=== PATIENT | male | born 2000 | race Caucasian/White ===

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

== ENCOUNTER 2020-01-08 09:06 | Outpatient (RCR) | payer OTHER, SELFPAY ==
[2019-12-31 00:39] VITALS: BP 120/75; PULSE 68; RESP 18; TEMP 37.3
[2020-01-08 09:07] VITALS: BP 124/80; PULSE 76; RESP 18; TEMP 37; BMI 27.3
--- NOTE | 2020-01-08 09:23 | PCM.WC.PN ---
(1) Open wound of left knee Status: Chronic Current Visit: Yes Code(s): S81.002A - Unspecified open wound, left knee, initial encounter Comment: Penetrating with fat layer exposed. Type of Wound Date of Service: 01/08/20 Chief Complaint: Non healing left knee wound History of Wound: Mr. Diaz is a 19-year-old who presents to the wound center due to nonhealing left knee wound. Sustained a wound while at work. Was working on wet concrete surface. Has been applying aloe without any significant improvement. No known past medical history. Feels well otherwise. Denies tobacco abuse. Progress of Wound: Healed. No new concerns. - Physical Exam Vital Signs Temp Pulse Resp BP 98.6 F 76 18 124/80 H 01/08/20 09:07 01/08/20 09:07 01/08/20 09:07 01/08/20 09:07 General: Alert, Oriented x3, Cooperative, No apparent distress HEENT: Atraumatic, Normocephalic Oral: Moist Mucosa Neck: Supple Lungs: Normal air movement Abdomen: Soft, Non Tender Extremities: No cyanosis Wound Measurements and Assessment WC - Nurse 1 - General Ulcer Measurement Start: 01/08/20 09:07 Freq: Status: Active Protocol: Activity Type Activity Date Activity User E-Sign Co-Sign Detail Recorded Client Recorded Date Recorded By Document 01/08/20 09:07 RB [id number] 01/08/20 09:09 RB 01/08/20 09:07 Wound Center Nurse 1 [Ulcer Assessment] 1. LEFT KNEE cluster -Combined with other wound No -Current Size (cm) - Length 0 -Current Size (cm) - Width 0 -Current Size (cm) - Depth 0 -Total Square Cm 0 -Photo Taken Yes -Epithelialization Large 67-100% WC - Nurse 2 - General Ulcer CM Notes Start: 01/08/20 09:07 Freq: Status: Active Protocol: Activity Type Activity Date Activity User E-Sign Co-Sign Detail Recorded Client Recorded Date Recorded By Document 01/08/20 09:19 MW [id number] 01/08/20 09:20 MW 01/08/20 09:19 Wound Center Nurse 2 [Procedure/Treatment] -Time 09:19 -Correct Patient Yes -Correct Side, Site, Position Yes -Correct Procedure Yes -Procedure Performed No -Post Debridement Size (cm) - Length 0 -Post Debridement Size (cm) - Width 0 -Post Debridement Size (cm) - Depth 0 -Total Square Cm 0 -Wound/Ulcer Outcome Healed- Epithelialized [See Physician Procedure note for Specifics] Pain Scale: 0-10 Numeric [Pain] -Is Patient Pain Free? Yes Musculoskeletal: No Muscle Wasting Neurological: Cranial nerves II-XII grossly intact Psych/Mental Status: Normal Affect Debridement Note Post-Debridement Measurements/Treatment WC - Nurse 2 - General Ulcer CM Notes Start: 01/08/20 09:07 Freq: Status: Active Protocol: Activity Type Activity Date Activity User E-Sign Co-Sign Detail Recorded Client Recorded Date Recorded By Document 01/08/20 09:19 MW [id number] 01/08/20 09:20 MW 01/08/20 09:19 Wound Center Nurse 2 1. LEFT KNEE cluster -Time 09:19 -Correct Patient Yes -Correct Side, Site, Position Yes -Correct Procedure Yes -Procedure Performed No -Post Debridement Size (cm) - Length 0 -Post Debridement Size (cm) - Width 0 -Post Debridement Size (cm) - Depth 0 -Total Square Cm 0 -Wound/Ulcer Outcome Healed- Epithelialized Pain Scale: 0-10 Numeric Is Patient Pain Free? Yes No debridement was completed today Assessment/Plan Active Problems (Last Reviewed 07/08/19 @ 16:37 by Estephania Nino) Open wound of left knee (Chronic) Penetrating with fat layer exposed. Assessment: left knee wound - healed. Plan: Healed, no new concerns today. Adaptic and gauze over top for 2 weeks. Keep area protected. Discharged from the wound clinic. Call with any concerns. This note was generated with [employer] dictation software. It may contain incorrect words, spelling, and punctuation that were not noted in checking the note before signing. Office Visits / Consults: 36019 OV L3 Est
== END 2020-01-30 23:59 ==
LOC: WC 09:06
PROVIDERS: PCP Pediatrics; Visit Provider Internal Medicine
DX: S81.002A Unspecified open wound, left knee, initial encounter (principal); X58.XXXA Exposure to other specified factors, initial encounter; Y93.89 Activity, other specified; Y92.89 Other specified places as the place of occurrence of the external cause; Y99.0 Civilian activity done for income or pay
CPT/HCPCS: 99213; G0463

== ENCOUNTER 2020-04-23 09:23 | Day surgery (SDC) | payer OTHER, SELFPAY ==
[2020-04-19 09:48] VITALS: BMI 29.3
[2020-04-23] VITALS (7 sets, daily range): BP systolic 125–146; BP diastolic 72–92; PULSE 60–81; RESP 14–99; TEMP 36.6–37; O2SAT 98–100
[2020-04-23] MEDS: Lactated Ringers 1,000 ML 100 ML IV (10:13)
--- NOTE | 2020-04-23 10:44 | DCINST_ITS ---
Weight Bearing Status: No weight bearing Call your doctor if you observe: Shortness of breath, Chest pain Additional Instructions: Do not bear weight on operative extremity . strict ice and elevation to the operative extremity 7 days postop. Do not remove splint. keep splint on clean and dry. Keep extremity cool apply ice behind the knee or anterior ankle. Avoid sweating to minimize itch. Do not stick anything inside of splint may take [id number] Benadryl for itch if necessary. Only take pain medication as prescribed. Narcotics can be addictive so only take if needed supplement with 1000 mg of Tylenol every 6 hours as needed for pain and OTC NSAID of preference to minimize narcotic usage. call with any questions or concerns and follow-up as directed. Allergies/Adverse Reactions: Allergies Sulfa (Sulfonamide Antibiotics) Allergy (Severe, Verified 04/19/20 15:25) Swelling Medications to take at Discharge Naproxen Sodium [Aleve] 220 mg PO PRN PRN 04/19/20 Oxycodone [Oxyir] 5 mg PO Q4H PRN PRN #40 tablet 04/23/20 The following prescriptions were given: Oxycodone [Oxyir] 5 mg PO Q4H PRN PRN #40 tablet PRN Reason: Pain Score 6-10 Transmission Status: Sent to [facility] Primary Care Physician: Yousuf Oliveira MD [Primary Care Provider] - Test Results: Test results from this visit will be discussed in further detail at your follow- up appointment, if applicable. Please Follow Up With: Larry Cunningham DO When: 2 weeks.
--- NOTE | 2020-04-23 10:44 | HP.PCM_ITS ---
History and Physical Date of Admission: 04/23/20 Intake Vital Signs 04/19/20 Height 6 ft 3 in 04/19/20 Weight: 235 lb 04/19/20 BMI 29.3 Intake Visit Reasons: LEFT ANKLE Accompanied by: Mother Is patient in pain?: Yes Pain scale (1-10): 5 Allergies Sulfa (Sulfonamide Antibiotics) Allergy (Severe, Verified 04/19/20 09:49) Swelling Medications NK 04/19/20 [History Confirmed 04/19/20] [facility] Medical History Back pain (Acute) Hay fever (Acute) SOB (shortness of breath) (Acute) Severe headache (Acute) ADHD (Chronic) Asthma (Chronic) Surgical History H/O left wrist surgery (Acute) History of tonsillectomy and adenoidectomy (Acute) History of tonsillectomy and adenoidectomy (Inactive) Family History (Updated 04/19/20 @ 09:53 by Erica Jensen) Mother Hypertension MVP (mitral valve prolapse) Father Asthma Hyperlipidemia ELAINE (obstructive sleep apnea) Brother Asthma Other Migraines Narcolepsy Social History (Updated 04/19/20 @ 12:59 by HEIDI Richards) household members: family Smoking Status: Never smoker alcohol intake: never substance use type: does not use what type of physical activity do you participate in: weight training frequency: 3-4 times per week do you feel safe at home: Yes HPI LEFT ANKLE: Details: Parts of this documentation were recorded by a scribe, this documentation accurately reflects the service provided and the decisions made by me, HEIDI Bernstein 04/19/20 3610. JOSS HARDIN is a 19 year old M here today to establish as a new patient. Patient tripped over a [place] citizen shorthair, patient felt immediate pain afterwards. Patient reports he did hear a snap and a pop. DOI: 04/17/2020. [facility], Sachin ordered the x-rays and was referred to our office. Denies previous foot and ankle surgeries, injections and injuries. Pain is rated 5/10 from the pain scale. Pain increases with ambulation. Has been taking Ibuprofen, which has not been providing any relief. Has been elevating his leg and applying ice which has been controlling his swelling. Denies numbness, tingling or other associated symptoms. ROS Const Reports system reviewed and no additional complaints, except as docu, Denies chills, Denies fatigue, Denies fever(s) Card Reports system reviewed and no additional complaints, except as docu, Denies chest pain, Denies shortness of breath Resp Reports system reviewed and no additional complaints, except as docu, Denies chest congestion, Denies cough, Denies shortness of breath GI Reports system reviewed and no additional complaints, except as docu, Denies abdominal pain, Denies constipation, Denies incontinent of stools, Denies loose stools Reports system reviewed and no additional complaints, except as docu, Denies urinary incontinence Musc Reports system reviewed and no additional complaints, except as docu, Reports abnormal walking, Reports joint pain, Reports joint swelling, Denies numbness, Denies stiffness, Denies tingling Skin/Breast Reports system reviewed and no additional complaints, except as docu, Denies dry skin, Denies redness, Denies lesions, Denies new lesions, Denies non-healing lesions, Denies itching, Denies rash, Denies skin ulcer, Denies sores, Denies wounds Neuro Yes system reviewed and no additional complaints, except as docu, Yes abnormal walking, No numbness, Yes radiating pain (calf), No restless legs, No tingling Endo Denies fatigue Ortho Exam Left Foot/Ankle Skin: Yes Ecchymosis and Soft Tissue Swelling; no Erythema Exam: Yes Ecchymosis, Soft tissue swelling, TTP FX site, TTP Lateral Malleolus, TTP ATFL, TTP Deltoid Ligament and TTP CFL; no Erythema Compartments: soft ROM: Yes pain with ROM Tests: Squeeze Test: 2 Pulses: Dorsalis Pedis: 2 ANKLE: Inspection of the left ankle shows generalized swelling both medially and laterally. There is evident ecchymosis also noted both medial and laterally. Patient does have decreased range of motion due to swelling and discomfort. He does have pain with range of motion. He has evident reproducible tenderness on palpation of the distal fibula at the fracture site as well as tenderness in the tibiofibular ligament as well as the deltoid and ATFL. Patient does have pain with squeeze test likely indicating syndesmotic/tibiofibular involvement. He does have normal sensation.extremity normal pulses. He does have intact motor function of the ankle/foot/toes. Assessment & Plan Problems 1. Closed fracture of distal end of left fibula, unspecified fracture morphology, initial encounter S82.407B 2. Moderate left ankle sprain, initial encounter S93.080L Plan Patient presents the office today following a injury on Sunday where he tripped over the dog and had an inversion injury. Patient states that as the ankle twisted he did feel a pop and had immediate pain. Patient has been in a boot and on crutches for the past 2 days. [facility] showing evidence of a spiral/oblique fracture in the distal fibula. His physical exam however today shows evidence of deltoid ligament involvement as well as tibiofibular and probable syndesmotic involvement. We did review his radiographs today and discussed anatomy and physiology of the ankle including ligamentous instability. At this time with his physical exam findings we did discuss with the surgeon that surgery is an option due to the deltoid involvement creating an unstable ankle joint. After discussing different options with patient and his mother they would like to proceed with surgical intervention at this time. We did discuss the planned procedure would be an open reduction internal fixation with a fibular plate. We will do an intraoperative stress test/stress view to evaluate the syndesmosis and pending that outcome will possibly use tight rope fixation for syndesmotic injury. Risks and benefits of the procedure were discussed with patient as seen on surgical consent form. We also did discuss COVID-19 risks being an in-hospital procedure. Patient will be notified by our office for the date of surgery. We discussed this likely will be Sunday due to the severity of swelling that he has today. He needs to work hard on keeping this elevated, icing, and can try some light compression with an Don wrap during icing to help remove some of the s welling. If swelling does not go down and they have concerns they can return to the office to have this checked. He will then be notified by the hospital/surgery department for preanesthesia/surgery testing. He will also receive Covid testing proximally 72 hours prior to procedure. He would not know the time of his surgery until the day before. They can notify our office in the meantime with any other concerns or complaints. He should continue to be on crutches nonweightbearing and use the boot at all time. This note was generated with [employer] dictation software. It may contain incorrect words, spelling, and punctuation that were not noted in checking the note before signing. Plan Detail Goals Decrease spasm Improve ROM Barriers Baseball Coding Level of Care Code Off vis,est,level 3 Diagnoses Closed fracture of distal end of left fibula, unspecified fracture morphology, initial encounter S82.832A ??Encounter type: initial encounter ??Fibula location: distal ??Fracture morphology: unspecified fracture morphology Moderate left ankle sprain, initial encounter S93.402A ??Encounter type: initial encounter I have re-examined the patient. There are no clinical changes since date of exam
--- NOTE | 2020-04-23 10:45 | RAD_ITS ---
STUDY: X-RAY - LEFT ANKLE REASON FOR EXAM: Male, 19 years old. ORIF fibula TECHNIQUE: 3 view(s) of the ankle. COMPARISON: 04/19/2020 FINDINGS: Fluoroscopy of the left ankle was utilized and operating room and 2 images suspended for interpretation.. RAD/Ankle min 3 Views IMPRESSION: Fluoroscopy during surgery. Electronically Signed: Ashkan Peralta MD at 12:05 EDT Tel , Service support ,
[2020-04-23] MEDS: Cefazolin 2 GM in 0.9% Normal Saline 100 ML IV (10:52)
--- NOTE | 2020-04-23 12:09 | PCM.OPRPT ---
Report of Operation Date of Procedure: 04/23/20 Description of Surgical Findings:: Preoperative diagnosis: Left distal fibula Hicks B displaced fracture, with corresponding deltoid rupture Postoperative diagnosis: Same Procedure: ORIF right distal fibula, evaluation of syndesmosis under anesthesia Anesthesia: General with popliteal block EBL: 10 Complications: None Implants: Arthrex distal fibular locking plate Condition: stable to PACU Indication for procedure: 19-year-old male That is post injury to left ankle with corresponding medial ankle ecchymosis and significant medial pain consistent with deltoid rupture sustained a Hicks B distal fibula fracture with some displacement on lateral view. We discussed the nature of his injury being a bimalleolar equivalent type of fracture and recommended ORIF did discuss thoroughly risk benefits and alternatives of surgery versus nonsurgical intervention including risk of bleeding infection nerve artery tissue damage need for further surgery hardware prominence and continued pain and expected post operative course. Procedure: Patient was met the preoperative holding area once again the operative extremity was then identified by both patient and physician was marked. Patient was brought back to the operating room on a wheeled cart and transferred to the operative table supine position. Anesthesia was started well-padded tourniquet was placed on the operative upper thigh. The patient was prepped and draped in the usual sterile fashion and a timeout was called to ensure the proper patient procedure and extremity were being contemplated. An Esmarch was used to exsanguinate the extremity and the tourniquet was inflated to 300 mmHg. A 15 blade scalpel was used to make a lateral incision to the distal fibula. This was carried down through the skin and subcutaneous tissue electrocautery was used, avoiding superficial peroneal nerve. Full-thickness flaps were elevated to the bone fracture site was evaluated and was cleared of hematoma and debris with a curette and irrigation was used. A [id number] reduction clamp was used to reduce the fracture [while a interfragmentary compression screw was placed] followed by a lateral locking plate was slid underneath this was checked under fluoroscopy for positioning of plate and fracture reduction the plate was secured to the shaft with a cortical screw followed by sequential cortical screws in the proximal aspect of the plate. This was followed by 3 locking screws in the distal end of the plate hook test was performed to ensure no syndesmotic instability. The medial syndesmotic joint space was symmetric with the remainder of the ankle mortise in both AP and mortise views fluoroscopic under stress testing images were saved to the PACS system the wound was thoroughly irrigated and was closed with 0 Vicryl followed by 2-0 Vicryl subcutaneous tissue followed by savi followed by Xeroform 4 x 4 ABD web roll bulky Mcdermott dressing stirrup splint and posterior slab splint followed by an Don wrap. Patient tolerated the procedure well and was transferred the PACU in stable condition. All counts were correct.
[2020-04-23] MEDS: oxyCODONE 5 MG Tablet PO (12:55)
[2020-04-23] MEDS: Cephalexin 500 MG Capsule 1000 MG PO (14:16)
== END 2020-04-23 14:19 | disposition home or self-care (01) ==
LOC: SDC 09:23 → AC 09:24
PROVIDERS: PCP Pediatrics; Referring Provider Orthopaedic Surgery; Visit Provider Orthopaedic Surgery
PROC: (CPT 27792; principal; 2020-04-23 10:40)
DX: S82.832A Other fracture of upper and lower end of left fibula, initial encounter for closed fracture (principal); W18.49XA Other slipping, tripping and stumbling without falling, initial encounter; Y93.9 Activity, unspecified; Y92.9 Unspecified place or not applicable; S93.402A Sprain of unspecified ligament of left ankle, initial encounter; J45.909 Unspecified asthma, uncomplicated
CPT/HCPCS: 01480; 27792; 64445; 73610; 76000; 87635; C1713; C9803; J7120; J2405; U0003

== ENCOUNTER → 2020-06-04 13:16 | Outpatient (CLI) | payer OTHER, SELFPAY ==
[2020-05-10 14:07] VITALS: BMI 29.3
--- NOTE | 2020-06-04 13:27 | RAD_ITS ---
STUDY: X-RAY - LEFT ANKLE REASON FOR EXAM: Male, 19 years old. Follow up post op left ankle. receiving rehab for ankle. surgery took place the end of april this year. TECHNIQUE: 3 view(s) of the ankle. COMPARISON: Comparison is made with prior study dated 04/19/2020. FINDINGS: The patient is status post ORIF of the distal fibular fracture utilizing screw and sideplate fixation device. There is good alignment. There is healing of the fracture. Normal medial and lateral malleoli. Normal tibiotalar articulation and ankle mortise. Normal visualized talus and calcaneus. The visualized subtalar, talonavicular, calcaneocuboid and tarsal articulations are normal. The soft tissue structures are unremarkable. RAD/Ankle min 3 Views IMPRESSION: Status post ORIF of the distal fibular fracture utilizing screw and sideplate fixation device. There is healing of the fracture. Anatomical alignment. Electronically Signed: Mele Murillo, at 15:33 EST , Service support ,
== END ==
PROVIDERS: PCP Pediatrics; Referring Provider Orthopaedic Surgery; Visit Provider Orthopaedic Surgery
DX: S82.402A Unspecified fracture of shaft of left fibula, initial encounter for closed fracture (principal); Z47.89 Encounter for other orthopedic aftercare
CPT/HCPCS: 73610

== ENCOUNTER 2020-06-23 14:00 | Outpatient (RCR) | payer OTHER, SELFPAY ==
[2020-05-10 14:07] VITALS: BMI 29.3
--- NOTE | 2020-05-13 16:24 | HP.PTEVAL ---
Patient's Visit Information JOSS HARDIN is a 19 year old M referred to Physical Therapy by Dr. Larry Cunningham DO with a diagnosis of L LE fracture. Date of Evaluation: 05/13/20 Physical Therapist: Joao Sanchez, PT, ATC - Visit Plan Frequency: 2-3x /Week Duration: 4-6 Weeks Plan: L ankle PROM/MOBS, stretching and strengthening, balance and proprio, bike, and HEP - Subjective DOS: 04/23/20. Pt reports he tripped over a dog and fractured L LE just above the ankle. Pt reports he went and had xrays and later that day he went and had the surgery. Pt reports he is gradually getting better now. Pt reports the pain is decreasing, and now that he is able to TTWB, there is not any increased pain. 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 Pt notes he has sprained his L ankle before, but never had injury to this extent. Pt reports tingling in L LE when he first wakes up, be that goes away with ambulation. No difficulty with sleep secondary to pain. Pt notes he can negotiate stairs now, but has to go one step at a time. Pt reports he has no pain this date while sitting here in the clinic. - Pain L LE Pain Intensity (Out of 10): 0 Pain Intensity Range: 3 - Objective Neuro: B LE sensation is WNL to light touch. Girth at ankle: R= 62 cm, L = 63 cm. ROM: R ankle DF= 10, PF= 55, Inv= 35, ever= 20; L ankle DF= 0, PF= 35, ever= 0, inv=20. MMT: R ankle is 5/5 throughout. L ankle is grossly 2/5 and painful. Observation: Incision still vaguely healing. No signs of infection at this time. - Goals Goal 1:: Decrease L LE pain x 50% to aid with tolerance for ambulation Goal Time Frame: 4-6 Weeks Goal 2:: Increase L LE strength x 1 grade to aid with RTS without limitation Goal Time Frame: 4-6 Weeks Goal 3:: Increase L ankle DF ROM x 10 degrees to aid with restoring a normalized gait pattern Goal Time Frame: 4-6 Weeks Goal 4:: I with HEP Goal Time Frame: 4-6 Weeks - Rehabilitation Potential Physical Therapy Diagnosis: L LE pain, weakness, and limited ROM secondary to L LE fracture Rehabilitation Potential: Good - Anticipated Interventions Patient/Client Instruction: Educate patient on: Condition, Plan of Care For the Purpose of:: To improve self management Therapeutic Exercise to Include: Strength training, Endurance training, Balance training, Flexibilty training, Gait and locomotor training, Passive ROM, Active ROM For the Purpose of:: To decrease pain, To increase ROM, To improve muscle performance and motor function Cryotherapy (ice pack, ice massage): Yes For the Purpose of:: To decrease pain Thank you for the opportunity to evaluate your patient. For Medicare and Medicare HMO plans, please review the plan of care and approve it. It will need to be FAXED BACK to us at [phone] for Medicare purposes. For Medicare only, by signing this I certify the plan of care. Please let me know if there are questions or concerns regarding this plan of care. Physician Signature: Date:
--- NOTE | 2020-06-23 14:13 | HP.PTDCSUM_ITS ---
It has been my pleasure to treat JOSS HARDIN referred by Dr. Larry Cunningham DO, with the diagnosis of L LE fracture for a total of 12 visit(s). Discharge Date: 06/23/20 Please see the following information for a summary of their discharge status. Subjective: Has walked without boot without difficulty for a ful day. Went to mall without it. Mom wants her to wean off of it and be careful. No pain in long time.Sleep is fine. To doctor in mid July. Activities at home are pretty normal outside of workout, wants to do leg press, squats, RDL. Will play baseball at [employer] in the spring. Teammates are hitting. No t allowed to swing until sees doctor. Wants to be done with therapy and feels like he can do it himself. L LE Pain Intensity (Out of 10): 0 % Improvement: 80 Objective/Function: 7 DF L and 60 PF, full and symmetrical eversiona dn inve rsion. 5/5 strength B ankles. walks normal including on toes and heels. Steps normal and reciprocal without deviations. Jogs well short distances without pain. Feels confident with slow progression of exercises. Goal 1:: Decrease L LE pain x 50% to aid with tolerance for ambulation Goal Progress: Goal Met Goal 2:: Increase L LE strength x 1 grade to aid with RTS without limitation Goal Progress: Goal Met Goal 3:: Increase L ankle DF ROM x 10 degrees to aid with restoring a normalized gait pattern Goal Progress: Goal Met Goal 4:: I with HEP Goal Progress: Goal Met Plan: Pt to doctor in July. wishes to be discharged from therapy. Will do so at his request after above education. can be sent back after doctor visit if conserns. If there are questions or concerns regarding this patient's physical therapy, please feel free to call me at [phone]. Thank you for the referral of this patient. Sincerely, Morris Huizar, DPT, OCS, CSCS
== END 2020-06-23 19:00 | disposition home or self-care (01) ==
LOC: PT 14:00
PROVIDERS: PCP Pediatrics; Referring Provider Orthopaedic Surgery; Visit Provider Orthopaedic Surgery
DX: Z47.89 Encounter for other orthopedic aftercare (principal)
CPT/HCPCS: 97110; 97140; 97161; 97164

== ENCOUNTER → 2021-03-22 08:51 | Outpatient (CLI) | payer OTHER, SELFPAY ==
[2021-03-22 12:22] LABS: Absolute Lymphocyte Count 1.04 X10^3/uL (0.83-4.51); Absolute Neutrophil Count 8.3 X10^3/uL (2.0-7.7); Basophil# 0.05 X10^3/uL; Basophil% 0.5 % (0-1); Eosinophil# 0.08 X10^3/uL; Eosinophils% 0.8 % (0-5); Hematocrit 46.5 % (40-54); Hemoglobin 15.5 g/dL (13.0-16.5); Lymphocyte # 1.04 X10^3/ul (0.83-4.51); Mean Corp Hgb Conc 33.3 g/dL (32-36); Mean Corpuscular Hgb 28.9 pg (27.0-32.0); Mean Corpuscular Volume 86.6 fL (80-94); Monocyte% 8.6 % (0-10); NRBC Flagged by Analyzer 0 % (0-5); Neutrophil % 79.3 % (47-70); Platelet Count 330 K/mm3 (150-450); RBC Distribution Width CV 12.3 % (11.6-14.6); RBC Distribution Width SD 38.9 fl (35.1-43.9); Red Blood Count 5.37 M/mm3 (4.6-6.2); White Blood Count 10.5 K/mm3 (4.4-11.0)
[2021-03-22 12:46] LABS: Amphetamine Urine VISTA NEGATIVE (<1000 ng/mL); Barbiturate Urine VISTA NEGATIVE (< 200 ng/mL); Benzodiazepine Urine VISTA NEGATIVE (< 200 ng/mL); Cocaine Urine VISTA NEGATIVE (< 300 ng/mL); Ecstacy Urine VISTA NEGATIVE (< 500 ng/mL); Methadone Urine VISTA NEGATIVE (< 300 ng/mL); PCP Urine VISTA NEGATIVE (< 25 ng/mL); THC Urine VISTA NEGATIVE (< 50 ng/mL); Vista UDS pH Range 6
[2021-03-22 12:53] LABS: AST(SGOT) 19 U/L (15-37); Alanine Aminotransfer ALT/SGPT 37 U/L (16-61); Alkaline Phosphatase 93 U/L (45-117); Anion Gap 7 (5-15); BUN 19 mg/dL (7-18); BUN/Creat Ratio 17.3 RATIO (10-20); Calcium,Total 9.7 mg/dL (8.5-10.1); Chloride 105 mmol/L (98-107); EST Glomerular Filtration Rate 90 mL/min (>60); Est Glom Filt Rate - Afr Amer 109 mL/min (>60); Globulin 4.2 g/dL (2.2-4.2); Glucose 76 mg/dL (74-106); Protein, Total 8.2 g/dL (6.4-8.2); Sodium Level 136 mmol/L (136-145); T4 Free Direct 0.98 ng/dL (0.76-1.46); Thyroid Stim Hormone (TSH) 2.21 uIU/mL (0.358-3.74)
== END ==
PROVIDERS: PCP Internal Medicine; Referring Provider Internal Medicine; Visit Provider Internal Medicine
DX: F90.9 Attention-deficit hyperactivity disorder, unspecified type (principal)
CPT/HCPCS: 36415; 80053; 80307; 84439; 84443; 85025

== ENCOUNTER → 2021-03-24 13:11 | Outpatient (CLI) | payer OTHER, SELFPAY ==
--- NOTE | 2021-03-24 13:15 | EKG12_ITS ---
Test Reason : TACHY Blood Pressure : / mmHG Vent. Rate : 071 BPM Atrial Rate : 071 BPM P-R Int : 146 ms QRS Dur : 100 ms QT Int : 392 ms P-R-T Axes : 035 017 028 degrees QTc Int : 425 ms Normal sinus rhythm Normal ECG Confirmed by ELY LEWIS, KAREEM ([id number]), associate editor HAI DEVLIN ([id number]) on 03/25/2021 1:19:48 PM Referred By: Gricel Maguire Confirmed By:MARIANN GRAVES MD
== END ==
PROVIDERS: PCP Internal Medicine; Referring Provider Internal Medicine; Visit Provider Internal Medicine
DX: F90.9 Attention-deficit hyperactivity disorder, unspecified type (principal)
CPT/HCPCS: 93005

== ENCOUNTER 2021-09-06 08:24 | Outpatient (CLI) | payer OTHER, SELFPAY ==
[2021-09-06 13:04] LABS: Amphetamine Urine VISTA NEGATIVE (<1000 ng/mL); Barbiturate Urine VISTA NEGATIVE (< 200 ng/mL); Benzodiazepine Urine VISTA NEGATIVE (< 200 ng/mL); Cocaine Urine VISTA NEGATIVE (< 300 ng/mL); Ecstacy Urine VISTA NEGATIVE (< 500 ng/mL); Methadone Urine VISTA NEGATIVE (< 300 ng/mL); PCP Urine VISTA NEGATIVE (< 25 ng/mL); THC Urine VISTA NEGATIVE (< 50 ng/mL); Vista UDS pH Range 5
== END 2021-09-06 23:59 | disposition home or self-care (01) ==
LOC: BIMLAB 08:25
PROVIDERS: PCP Internal Medicine; Referring Provider Internal Medicine; Visit Provider Internal Medicine
DX: F90.0 Attention-deficit hyperactivity disorder, predominantly inattentive type (principal)
CPT/HCPCS: 80307

== ENCOUNTER → 2022-03-14 | Outpatient (CLI) | payer OTHER, SELFPAY ==
[2022-03-14 12:18] LABS: Absolute Lymphocyte Count 2.08 X10^3/uL (0.83-4.51); Basophil# 0.08 X10^3/uL; Basophil% 1.3 % (0-1); Eosinophil# 0.29 X10^3/uL; Eosinophils% 4.7 % (0-5); Hematocrit 46.1 % (40-54); Hemoglobin 15.1 g/dL (13.0-16.5); Lymphocyte # 2.08 X10^3/ul (0.83-4.51); Lymphocyte % 33.9 % (19-41); Mean Corp Hgb Conc 32.8 g/dL (32-36); Mean Corpuscular Hgb 28.5 pg (27.0-32.0); Mean Corpuscular Volume 87.1 fL (80-94); Mean Platelet Vol. 9.1 fl (6.2-12.0); Monocyte# 0.66 X10^3/uL; Monocyte% 10.7 % (0-10); NRBC Flagged by Analyzer 0 % (0-5); Neutrophil # 2.99 X10^3/uL (2.7-7.7); Neutrophil % 48.7 % (47-70); Platelet Count 335 K/mm3 (150-450); RBC Distribution Width CV 12.7 % (11.6-14.6); RBC Distribution Width SD 40.1 fl (35.1-43.9); Red Blood Count 5.29 M/mm3 (4.6-6.2); White Blood Count 6.1 K/mm3 (4.4-11.0)
[2022-03-14 12:20] LABS: Amphetamine Urine VISTA NEGATIVE (<1000 ng/mL); Barbiturate Urine VISTA NEGATIVE (< 200 ng/mL); Benzodiazepine Urine VISTA NEGATIVE (< 200 ng/mL); Cocaine Urine VISTA NEGATIVE (< 300 ng/mL); Ecstacy Urine VISTA NEGATIVE (< 500 ng/mL); Methadone Urine VISTA NEGATIVE (< 300 ng/mL); PCP Urine VISTA NEGATIVE (< 25 ng/mL); THC Urine VISTA NEGATIVE (< 50 ng/mL); Vista UDS pH Range 5
[2022-03-14 12:49] LABS: ALB/GLOB Ratio 1.1 RATIO (0.9-2.4); AST(SGOT) 27 U/L (15-37); Alanine Aminotransfer ALT/SGPT 39 U/L (16-61); Albumin, Serum 3.9 g/dL (3.2-5.0); Alkaline Phosphatase 89 U/L (45-117); Anion Gap 6 (5-15); BUN 18 mg/dL (7-18); BUN/Creat Ratio 19.6 RATIO (10-20); Calcium,Total 9.7 mg/dL (8.5-10.1); Chloride 107 mmol/L (98-107); Creatinine, Serum 0.92 mg/dL (0.70-1.30); EST Glomerular Filtration Rate 110 mL/min (>60); Est Glom Filt Rate - Afr Amer 133 mL/min (>60); Globulin 3.7 g/dL (2.2-4.2); Glucose 88 mg/dL (74-106); Potassium 4.5 mmol/L (3.5-5.1); Protein, Total 7.6 g/dL (6.4-8.2); Sodium Level 139 mmol/L (136-145)
== END | disposition home or self-care (01) ==
LOC: BIMLAB 08:31
PROVIDERS: PCP Internal Medicine; Referring Provider Internal Medicine; Visit Provider Internal Medicine
DX: F90.9 Attention-deficit hyperactivity disorder, unspecified type (principal); Z51.81 Encounter for therapeutic drug level monitoring
CPT/HCPCS: 36415; 80053; 80307; 85025

== ENCOUNTER → 2022-05-16 | Outpatient (CLI) | payer OTHER, SELFPAY ==
[2022-05-16 12:25] LABS: Amphetamine Urine VISTA NEGATIVE (<1000 ng/mL); Barbiturate Urine VISTA NEGATIVE (< 200 ng/mL); Benzodiazepine Urine VISTA NEGATIVE (< 200 ng/mL); Cocaine Urine VISTA NEGATIVE (< 300 ng/mL); Ecstacy Urine VISTA NEGATIVE (< 500 ng/mL); Methadone Urine VISTA NEGATIVE (< 300 ng/mL); PCP Urine VISTA NEGATIVE (< 25 ng/mL); THC Urine VISTA NEGATIVE (< 50 ng/mL); Vista UDS pH Range 7
== END | disposition home or self-care (01) ==
LOC: LABSPEC 09:30 → BIMLAB 15:33
PROVIDERS: PCP Internal Medicine; Referring Provider Physician Assistant; Visit Provider Physician Assistant
DX: F90.9 Attention-deficit hyperactivity disorder, unspecified type (principal)
CPT/HCPCS: 36415; 80307

== ENCOUNTER → 2023-01-01 | Outpatient (CLI) | payer OTHER, SELFPAY ==
[2023-01-01 12:24] LABS: Absolute Lymphocyte Count 1.54 X10^3/uL (0.83-4.51); Absolute Neutrophil Count 4.2 X10^3/uL (2.0-7.7); Basophil# 0.09 X10^3/uL; Basophil% 1.3 % (0-1); Hematocrit 46.5 % (40-54); Hemoglobin 15.6 g/dL (13.0-16.5); Lymphocyte # 1.54 X10^3/ul (0.83-4.51); Mean Corp Hgb Conc 33.5 g/dL (32-36); Mean Corpuscular Volume 86.4 fL (80-94); Mean Platelet Vol. 9.3 fl (6.2-12.0); Monocyte# 0.61 X10^3/uL; Monocyte% 9.1 % (0-10); NRBC Flagged by Analyzer 0 % (0-5); Neutrophil # 4.24 X10^3/uL (2.7-7.7); Neutrophil % 63.5 % (47-70); Platelet Count 314 K/mm3 (150-450); RBC Distribution Width CV 12.7 % (11.6-14.6); RBC Distribution Width SD 39.9 fl (35.1-43.9); Red Blood Count 5.38 M/mm3 (4.6-6.2); White Blood Count 6.7 K/mm3 (4.4-11.0)
[2023-01-01 12:42] LABS: AST(SGOT) 21 U/L (15-37); Alanine Aminotransfer ALT/SGPT 32 U/L (16-61); Alkaline Phosphatase 76 U/L (45-117); Anion Gap 6 (5-15); BUN 17 mg/dL (7-18); BUN/Creat Ratio 16.7 RATIO (10-20); Calcium,Total 10.3 mg/dL (8.5-10.1); Chloride 106 mmol/L (98-107); Cholesterol 182 mg/dL (200); Creatinine, Serum 1.02 mg/dL (0.70-1.30); EST Glomerular Filtration Rate 97 mL/min (>60); Est Glom Filt Rate - Afr Amer 117 mL/min (>60); Globulin 3.9 g/dL (2.2-4.2); Glucose 80 mg/dL (74-106); High Density Lipoprotein 37 mg/dL; Protein, Total 7.9 g/dL (6.4-8.2); Sodium Level 139 mmol/L (136-145); Triglycerides 190 mg/dL; Very Low Density Lipoprotein 38 mg/dL (5-40)
== END | disposition home or self-care (01) ==
LOC: BIMLAB 09:47
PROVIDERS: PCP Internal Medicine; Referring Provider Internal Medicine; Visit Provider Internal Medicine
DX: I10 Essential (primary) hypertension (principal)
CPT/HCPCS: 36415; 80053; 80061; 85025

== ENCOUNTER 2023-12-07 16:20 | Emergency (ER) | payer OTHER, SELFPAY ==
[2023-12-07 16:20] VITALS: BP 161/88; PULSE 82; RESP 14; TEMP 36.1; O2SAT 98
--- NOTE | 2023-12-07 16:25 | RAD_ITS ---
EXAM: XR LEFT TIBIA AND FIBULA, 2 VIEWS CLINICAL INDICATION: FALL TECHNIQUE: Frontal and lateral views of the left tibia and fibula. COMPARISON: No relevant prior studies available. FINDINGS: BONES/JOINTS: Cortical plate with multiple screws in place along the distal fibular shaft and lateral malleolus. No evidence of hardware failure. No acute fracture or subluxation. SOFT TISSUES: Lateral soft tissue swelling noted at the level of the ankle. RAD/Tibia & Fibula 2 Views IMPRESSION: No acute bone or joint abnormality. Soft tissue swelling. Electronically Signed: Fernando Santos MD at 16:46 EDT ,
--- NOTE | 2023-12-07 16:30 | RAD_ITS ---
EXAM: XR LEFT ANKLE COMPLETE, 3 OR MORE VIEWS CLINICAL INDICATION: FALL TECHNIQUE: Frontal, lateral and oblique views of the left ankle. COMPARISON: No relevant prior studies available. FINDINGS: BONES/JOINTS: No acute fracture or subluxation. Cortical plate in place along the distal fibula/lateral malleolus. SOFT TISSUES: Lateral soft tissue swelling. RAD/Ankle min 3 Views IMPRESSION: No acute bone or joint abnormality. Lateral soft tissue swelling. Electronically Signed: Fernando Santos MD at 16:47 EDT ,
--- NOTE | 2023-12-07 16:55 | ED.RN ---
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 PATIENT GIVEN JESSICAI
--- NOTE | 2023-12-07 17:08 | EDS_ITS ---
HPI <CHAPO Santiago - Last Filed: 12/07/23 17:13> History of Present Illness Chief Complaint: Lower Extremity Injury Narrative Narrative: Patient is a 23-year-old male with no significant ankle history who presents to the emergency department after an injury that occurred at work. Patient does have history of a fracture to left ankle with plates and screws. This happened approximately 3 years ago. Patient states today while at work, he was on a roller and when getting off the injured rolling his left ankle. He states he did hear some snapping he is concerned that he injured his ankle. He denies any other injury. COUNT INCLUDES THE [facility] <CHAPO Santiago - Last Filed: 12/07/23 17:13> COUNT INCLUDES THE [facility] Medical History ADHD Asthma Back pain COVID-19 Hay fever Hypertension Left ankle pain Left leg pain Migraines Piriformis syndrome of left side Preoperative evaluation to rule out surgical contraindication Severe headache SOB (shortness of breath) Tachycardia Therapeutic drug monitoring Home Medications ?Medication ?Instructions ?Recorded ?Last Taken ?Type loratadine 10 mg tablet (Claritin) 10 mg PO DAILY PRN 03/22/21 Unknown History naproxen sodium 220 mg capsule 220 mg PO BID PRN 03/22/21 Unknown History (Aleve) cyclobenzaprine 10 mg tablet 10 mg PO BID PRN muscle spasm #30 08/09/22 Unknown Rx tabs guanfacine 1 mg tablet 1 mg PO BID 3 months #180 tabs 09/13/22 Unknown Rx Allergy/AdvReac Type Severity Reaction Status Date / Time Sulfa (Sulfonamide Allergy Severe Swelling Verified 12/07/23 16:21 Antibiotics) Family History Mother Hypertension MVP (mitral valve prolapse) Father Asthma Hyperlipidemia ELAINE (obstructive sleep apnea) Brother Asthma Other Migraines Narcolepsy Surgical History H/O left wrist surgery History of elbow surgery History of tonsillectomy and adenoidectomy History of tonsillectomy and adenoidectomy S/P ACL repair Social History household members: family Smoking Status: Never smoker alcohol intake: never substance use type: does not use what type of physical activity do you participate in: weight training frequency: 3-4 times per week do you feel safe at home: Yes ROS <CHAPO Santiago - Last Filed: 12/07/23 17:13> ROS ED ROS Narrative Constitutional: Negative for fever, chills, weight loss, weakness Eyes: Negative for vision loss, vision change, double vision ENT: Negative for any sore throat, ear pain, congestion Cardiovascular: Negative for any chest pain, tightness, palpitations Respiratory: Negative for any cough, sputum production, hemoptysis, dyspnea, dyspnea on exertion, orthopnea Gastrointestinal: Negative for any abdominal pain, nausea, vomiting, diarrhea, constipation, blood in stool, blood in vomit : Negative for any urinary frequency, dysuria, retention, blood in urine Muscle skeletal: Negative for any neck pain, back pain. Positive for left ankle pain Neurological: Negative for any headache, syncope, dizziness Skin: Negative for any rashes, itching, abrasions, lacerations Psychiatric: Negative for any depression, anxiety, stress, suicidal ideation, homicidal ideation Hematologic: Negative for any excessive bruising, easy bleeding EXAM <CHAPO Santiago - Last Filed: 12/07/23 17:13> Physical Exam Narrative Exam Narrative: Vital signs reviewed. HEET: Head normocephalic atraumatic, TMs clear bilaterally. Posterior pharynx is clear, moist mucous membranes. Nares clear bilaterally. Neck: Supple with no lymphadenopathy or tenderness. No signs of meningismus. Cardiac: Regular rate and rhythm no murmurs gallops or rubs, equal peripheral pulses bilaterally. Respiratory: Lungs clear to auscultation bilaterally. No chest tenderness. Abdomen: Soft, nontender, nondistended. No abdominal bruit or pulsatile masses. No hepatosplenomegaly Extremities: Patient does have edema to the left ankle and the lateral malleolus. Patient able to dorsiflex, plantarflex against resistance. +2 pedal pulse. Only slight pain on palpation to the medial aspect. No signs of gross trauma or deformity. Active full range of motion of all extremities. Neuro: Cranial nerves II through XII intact, no focal neurological deficits. Skin: Clean dry and intact with no rash, purpura, petechiae, vesicles or pustules. Backs/flank: No CVA tenderness, no midline spinal tenderness, no deformity. Psych: Normal mood and affect. No SI, HI or acute psychosis. Const Vital Signs: 12/07/23 16:20 12/07/23 18:20 Temperature 96.9 F L 98.1 F Temperature Source Temporal Pulse Rate 82 69 Respiratory Rate 14 16 Blood Pressure 161/88 H 121/79 H Blood Pressure Mean 112 93 Pulse Ox 98 99 Oxygen Delivery Method Room Air Positive well nourished and well developed General Appearance ED: well developed <Dr. Gigi Chu DO - Last Filed: 12/07/23 22:37> Physical Exam Const Vital Signs: 12/07/23 16:20 12/07/23 18:20 Temperature 96.9 F L 98.1 F Temperature Source Temporal Pulse Rate 82 69 Respiratory Rate 14 16 Blood Pressure 161/88 H 121/79 H Blood Pressure Mean 112 93 Pulse Ox 98 99 Oxygen Delivery Method Room Air MDM <CHAPO Santiago - Last Filed: 12/07/23 17:13> MDM Radiography Diagnostic Testing: Clinical Impression(s) from Imaging Studies Tibia/Fibula X-Ray 12/07/23 16:25 IMPRESSION: No acute bone or joint abnormality. Soft tissue swelling. Electronically Signed: Fernando Santos MD at 16:46 EDT , Ankle X-Ray 12/07/23 16:30 IMPRESSION: No acute bone or joint abnormality. Lateral soft tissue swelling. Electronically Signed: Fernando Santos MD at 16:47 EDT , Treatment and Re-Evaluation :: Differential diagnosis includes however is not limited to: Ankle sprain, ankle fracture, foot fracture, tibial fibular fracture, hardware malfunction Patient appears to be in no obvious distress vital signs are stable, patient is appearing nontoxic. Patient presents to the emergency department after mechanical fall rolling the left ankle. Patient is concerned because his past history of surgery on this ankle. X-rays of the tibia-fibula as well as the ankle showed no acute bony abnormality. Lateral soft tissue swelling, hardware appears to be in place. This is a workers comp. Patient will be be able to return back to work on November however patient will have limitations using the crutches as needed, decreased stooping, allowing to sit and stand, to elevate and ice. Patient will follow-up with orthopedics, he does have 1 that he is established with. He instructed return for any worsening symptoms. Patient stable for discharge. I did offer the patient pain medicine here, he refused at this time saying that his pain is not severe. <Dr. Gigi Chu, DO - Last Filed: 12/07/23 22:37> MDM Radiography Diagnostic Testing: Clinical Impression(s) from Imaging Studies Tibia/Fibula X-Ray 12/07/23 16:25 IMPRESSION: No acute bone or joint abnormality. Soft tissue swelling. Electronically Signed: Fernando Santos MD at 16:46 EDT , Ankle X-Ray 12/07/23 16:30 IMPRESSION: No acute bone or joint abnormality. Lateral soft tissue swelling. Electronically Signed: Fernando Santos MD at 16:47 EDT , Treatment and Re-Evaluation :: Differential diagnosis includes however is not limited to: Ankle sprain, ankle fracture, foot fracture, tibial fibular fracture, hardware malfunction Patient appears to be in no obvious distress vital signs are stable, patient is appearing nontoxic. Patient presents to the emergency department after mechanical fall rolling the left ankle. Patient is concerned because his past history of surgery on this ankle. X-rays of the tibia-fibula as well as the ankle showed no acute bony abnormality. Lateral soft tissue swelling, hardware appears to be in place. This is a workers comp. Patient will be be able to return back to work on November however patient will have limitations using the crutches as needed, decreased stooping, allowing to sit and stand, to elevate and ice. Patient will follow-up with orthopedics, he does have 1 that he is established with. He instructed return for any worsening symptoms. Patient stable for discharge. I did offer the patient pain medicine here, he refused at this time saying that his pain is not severe. 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 I perform my own [id number] evaluation. I agree with the plan of work-up. Inversion injury left ankle at work. History of ankle fracture 3 years ago. Exam swelling lateral malleolus tender ATFL region. Skin intact. No midfoot tenderness. 2 view x-ray tib-fib left along with 3 view left ankle ordered from triage. This was interpreted myself and read by radiology shows no fracture. Hardware is intact. He has ankle splints and crutches at home to use. He was given ibuprofen in the ED as he is waiting for occupational health for testing. Outpatient follow-up with occupational health. Appropriate work restrictions were given. Discharge Plan Triage Chief Complaint: Lower Extremity Injury ED Midlevel Provider: David Meehan ED Provider: Gigi Chu Dx/Rx/DC Orders Clinical Impression: Fall, Ankle sprain Instructions: Ankle Inversion (Strength), ED Ankle Sprain (Adult) Prescriptions: No Action naproxen sodium [Aleve] 220 mg capsule 220 mg PO BID PRN loratadine [Claritin] 10 mg tablet 10 mg PO DAILY PRN guanfacine 1 mg tablet 1 mg PO BID 90 Days Qty: 180 1RF cyclobenzaprine 10 mg tablet 10 mg PO BID PRN (Reason: muscle spasm) Qty: 30 2RF Primary Care Provider: Gricel Maguire Referrals: Gricel Maguire MD [Primary Care Provider] - Activity Restrictions/Additional Instructions: Your restrictions for the next week. Wear the boot, use a crutches as needed. Print Language: Latvian Disposition Disposition: Home, Self Care Discharge Date/Time: 12/07/23 18:50
[2023-12-07 18:20] VITALS: BP 121/79; PULSE 69; RESP 16; TEMP 36.7; O2SAT 99
[2023-12-07] MEDS: Ibuprofen 600 MG Tablet PO (18:44)
== END 2023-12-07 18:50 | disposition home or self-care (01) ==
LOC: ED 17:14
PROVIDERS: Emergency Provider Emergency Medicine; PCP Internal Medicine; Visit Provider Emergency Medicine
DX: S93.401A Sprain of unspecified ligament of right ankle, initial encounter (principal); X58.XXXA Exposure to other specified factors, initial encounter; Y93.89 Activity, other specified; Y99.0 Civilian activity done for income or pay; Y92.89 Other specified places as the place of occurrence of the external cause; I10 Essential (primary) hypertension; Z79.899 Other long term (current) drug therapy; F90.9 Attention-deficit hyperactivity disorder, unspecified type
CPT/HCPCS: 73590; 73610; 99282